=== PATIENT | female | born 1950 | race Two or more races ===

== ENCOUNTER 2020-11-17 13:22 | Outpatient (CLI) | payer OTHER | END 2020-11-17 13:25 | disposition home or self-care (01) | LOC: LAB 13:22 | DX: N20.0 Calculus of kidney (principal) ==

== ENCOUNTER 2020-11-26 10:12 | Outpatient (CLI) | payer OTHER | END 2020-11-26 10:37 | disposition home or self-care (01) | LOC: RAD 10:12 → MRI 10:12 | PROVIDERS: ATTEND Urology | DX: N28.1 Cyst of kidney, acquired (principal); N20.0 Calculus of kidney | CPT/HCPCS: 74183; A9575; 74182 ==

== ENCOUNTER 2022-11-08 07:45 | Inpatient (IN) | payer OTHER ==
[~2022-11-08] VITALS: Ht 157.5 cm; Wt 88.0 kg
[2022-11-08] MEDS ORDERED: COZAAR100 MG PO (09:46)
[2022-11-08] MEDS ORDERED: NORVASC5 MG PO (09:46)
[2022-11-08] MEDS ORDERED: FASENRA PE30 MG/1 ML SQ (09:46)
[2022-11-14] MEDS ORDERED: UNISOM SLEEP AI25 MG (11:02)
[2022-11-14] MEDS ORDERED: HYDROCHLOROTH12.5 MG (11:03)
[2022-11-14] MEDS ORDERED: SULINDAC200 MG (11:03)
[2022-11-14] MEDS ORDERED: MONTELUKAST SOD10 MG (11:05)
[2022-11-14] MEDS ORDERED: FOLIC ACID0.4 MG (11:05)
[2022-11-14] MEDS ORDERED: ROSUVASTATIN CAL5 MG (11:05)
[2022-11-16] MEDS ORDERED: BACTRIM DS TAB1 EACH PO (06:41)
[2022-11-16] MEDS ORDERED: OXYC1TAB9 PO (06:41)
[2022-11-16] MEDS ORDERED: INTEGRA PLUS C1 EACH PO (06:41)
[2022-11-16] MEDS ORDERED: XARELTO10 MG PO (06:41)
== END 2022-11-16 12:07 | DRG 470 ==
LOC: SURH 11-14 06:20 → O/R 11-14 06:20 → SURG 11-14 07:45 → SURH 11-14 19:00
PROVIDERS: ADMIT Orthopaedic Surgery Sports Medicine; ATTEND Orthopaedic Surgery Sports Medicine
PROC: 0SRB0JZ Replacement of Left Hip Joint with Synthetic Substitute, Open Approach (ICD-10-PCS; principal; 2022-11-14 10:15)
DX: M16.12 Unilateral primary osteoarthritis, left hip (principal); I10 Essential (primary) hypertension

== ENCOUNTER → 2022-11-11 07:18 | Outpatient (CLI) | payer OTHER ==
[~2022-11-11 07:18] MED LIST: BACTRIM DS TAB1 EACH PO; COZAAR100 MG PO; FASENRA PE30 MG/1 ML SQ; FOLIC ACID0.4 MG; HYDROCHLOROTH12.5 MG; INTEGRA PLUS C1 EACH PO; MONTELUKAST SOD10 MG; NORVASC5 MG PO; OXYC1TAB9 PO; ROSUVASTATIN CAL5 MG; SULINDAC200 MG; UNISOM SLEEP AI25 MG; XARELTO10 MG PO
== END | disposition home or self-care (01) ==
LOC: NUCLEAR 07:00
PROVIDERS: ATTEND Specialist
DX: I11.9 Hypertensive heart disease without heart failure (principal); I25.9 Chronic ischemic heart disease, unspecified; J45.22 Mild intermittent asthma with status asthmaticus; E78.5 Hyperlipidemia, unspecified
CPT/HCPCS: 78452; 93017; A9500; J1250